=== PATIENT | female | born 1985 | race Caucasian/White ===

== ENCOUNTER 2018-09-02 16:03 | Emergency (ER) | payer OTHER ==
[~2018-09-02] VITALS: Ht 162.6 cm; Wt 59.0 kg
[~2018-09-02 16:03] MED LIST: ZITHROMAX500 MG PO
== END 2018-09-02 17:54 | disposition home or self-care (01) ==
LOC: ER 16:03
DX: S90.31XA Contusion of right foot, initial encounter (principal); W26.8XXA Contact with other sharp object(s), not elsewhere classified, initial encounter; Y93.89 Activity, other specified; Y92.89 Other specified places as the place of occurrence of the external cause; Y99.8 Other external cause status

== ENCOUNTER 2020-11-09 08:47 | Emergency (ER) | payer OTHER ==
[~2020-11-09] VITALS: Ht 162.6 cm; Wt 57.6 kg
[2020-11-09] MEDS ORDERED: PEPCID AC20 MG PO (16:23)
[2020-11-09] MEDS ORDERED: ONDANSETRON ODT4 MG PO (16:23)
== END 2020-11-09 18:41 | disposition home or self-care (01) ==
LOC: ER 08:47
DX: B34.9 Viral infection, unspecified (principal); E86.0 Dehydration; Z20.822 Contact with and (suspected) exposure to COVID-19

== ENCOUNTER → 2021-11-23 | Emergency (ER) | payer OTHER ==
[~2021-11-23] VITALS: Ht 162.6 cm; Wt 59.0 kg
[~2021-11-23] MED LIST changes: +ONDANSETRON ODT4 MG PO; +PEPCID AC20 MG PO
== END | disposition left against medical advice (07) ==
LOC: ER 21:12
DX: Z53.21 Procedure and treatment not carried out due to patient leaving prior to being seen by health care provider (principal)

== ENCOUNTER 2022-01-31 10:37 | Outpatient (CLI) | payer OTHER | END 2022-01-31 11:06 | disposition home or self-care (01) | LOC: SONOGRAMA 10:37 | PROVIDERS: ATTEND Obstetrics & Gynecology | DX: N60.11 Diffuse cystic mastopathy of right breast (principal); N60.12 Diffuse cystic mastopathy of left breast ==

== ENCOUNTER → 2022-04-13 | Emergency (ER) | payer OTHER ==
[~2022-04-13] VITALS: Ht 162.6 cm; Wt 58.1 kg
[~2022-04-13] MED LIST changes: +TUSSI PRES-B L480 ML PO; +ZYRTEC10 M3 PO
== END | disposition home or self-care (01) ==
LOC: ER 07:24
DX: B34.9 Viral infection, unspecified (principal); Z20.822 Contact with and (suspected) exposure to COVID-19

== ENCOUNTER 2023-03-17 12:04 | Outpatient (CLI) | payer OTHER | END 2023-03-17 12:16 | disposition home or self-care (01) | LOC: RAD 12:04 | DX: M99.01 Segmental and somatic dysfunction of cervical region (principal); M99.02 Segmental and somatic dysfunction of thoracic region; M99.03 Segmental and somatic dysfunction of lumbar region; M99.04 Segmental and somatic dysfunction of sacral region; M99.05 Segmental and somatic dysfunction of pelvic region ==